=== PATIENT | female | born 1940 | race Caucasian/White ===

== ENCOUNTER → 2020-01-14 | Outpatient (CLI) | payer MEDICARE ==
[2020-01-14 13:15] VITALS: BP 173/85; PULSE 173; RESP 20; TEMP 98.2; BMI 20.2
--- NOTE | 2020-01-14 15:32 | P.HPBAR ---
Bariatric H&P - History & Physicial H&P Date: 01/14/20 History & Physicial: Visit/CC: Bump on port x 1 week, no pain Patient initial contact: Initial weight: Initial weight in pounds: Height: 5 ft 7 in Initial BMI: Last weight: Current weight: 58.513 kg Current weight in pounds: 129.00 Current BMI: 20.2 Stuart body weight (based on NIH guidelines): 61.235 kg Excess body weight loss: The patient is a 79 year-old F who presents for Bariatric Assessment. Patient presents to the [facility]. She has complaints of pain at her port site patient has dementia. Past Medical History Past Medical History: Dementia, Thyroid Disorder Additional Past Medical History / Comment(s): Dementia History of Any Multi-Drug Resistant Organisms: None Reported Past Surgical History: Bariatric Surgery, Orthopedic Surgery Additional Past Surgical History / Comment(s): Left ankle surgery 2016 lap band surgery pt unsure of year Past Anesthesia/Blood Transfusion Reactions: No Reported Reaction Additional Past Anesthesia/Blood Transfusion Reaction / Comm: Per has trouble waking up after anesthesia Past Psychological History: Anxiety, Depression Smoking Status: Former smoker Surgical - Exam Vital Signs Temp Pulse Resp BP 98.2 F 173 H 20 173/85 01/14/20 13:05 01/14/20 13:05 01/14/20 13:05 01/14/20 13:05 - General well developed, well nourished, no distress - Eyes PERRL - ENT normal pinna - Neck no masses - Respiratory normal expansion - Cardiovascular Rhythm: regular - Abdomen Patient's lap band port is palpable due to her weight loss. There is some minimal tenderness. There is no evidence of infection. Erythema or inflammation. Abdomen: soft, non tender Bariatric Assessment & Plan Plan: Abdominal pain. Unsure of etiology this point. The pain is quite minimal. I recommended observation. She'll follow-up in 8 weeks. Bariatric Checklist Checklist: Plan: Checklist: EGD: 1. Hiatal hernia: 2. H. Pylori: HgbA1c: Vitamin D: Smoking: Former smoker Primary care physician referral: Saritha Sorto in [place] Psychiatry clearance: Cardiology clearance: Sleep study: Diet journal: VTE risk score: VTE risk level: Rehab needs at discharge:
== END | disposition home or self-care (01) ==
LOC: BARWHC3 12:06
PROVIDERS: ATTEND Surgery
DX: Z46.51 Encounter for fitting and adjustment of gastric lap band (principal); R10.9 Unspecified abdominal pain; Z87.891 Personal history of nicotine dependence; F03.90 Unspecified dementia, unspecified severity, without behavioral disturbance, psychotic disturbance, mood disturbance, and anxiety; Z98.84 Bariatric surgery status
CPT/HCPCS: 99211